=== PATIENT | female | born 1970 | race Caucasian/White ===

== ENCOUNTER → 2021-02-02 | Day surgery (SDC) | payer BC ==
[~2021-02-02] VITALS: Ht 165.1 cm; Wt 154.0 kg
[~2021-02-02] MED LIST: LIDOCAINE 1%/EPI 1:100,000 20 ML VIAL. INJ ONE; LIDOCAINE 1%/EPI 1:100,000 20 ML VIAL. ONE
[2021-02-02 11:45] VITALS: BP 127/88
--- NOTE | 2021-02-02 14:20 | PDOC4 ---
Operative Note Operative Note Date: February 02, 2021 at 12:30 PM Preoperative diagnosis: Right flank mass Postoperative diagnosis: Same Procedure: Excision of right flank mass Surgeon: Suman Specimen: Right flank mass Dictation: Patient is a 50-year-old female with complaints of a lump on her right flank. Procedure of excision was explained to the patient detail was benefits were also discussed occluding bleeding infection. Patient was taken to the minor's room placed in the left lateral cubitus position area around the mass was prepped and draped usual sterile fashion using ChloraPrep. Area around the mass was injected with 1% lidocaine with epinephrine elliptical incision was made with 15 blade scalpel is carried down through subcutaneous tissue excising the mass sharply and sent for pathology. The wound was closed in a single layer 4-0 subcuticular Monocryl Mastisol Steri-Strips and island dressing were applied. Patient tolerated procedure well was discharged home in stable condition all sponge instrument needle counts listed as correct estimated blood loss 5 mL AGUSTÍN THIBODEAUX MD Feb 02, 2021 14:20
--- NOTE | 2021-02-02 14:22 | DISCH ---
DISCHARGE INSTRUCTIONS Condition on Discharge Condition on Discharge: Stable Activity After Discharge Activity Instructions for Disc: No restrictions Diet after Discharge Diet after Discharge: Regular Wound Incision Care Other wound/incision instructi: May shower in 24 hours Contacting the after DC Call your doctor for: If your condition worsens Follow-Up Follow up with: Dr. Thibodeaux in 2 weeks AGUSTÍN THIBODEAUX MD Feb 02, 2021 14:22
--- NOTE | 2021-02-07 16:10 | PATHOLOGY ---
[facility] Accession Number: [id number] . 01 Material submitted: . flank - MASS RIGHT FLANK. Modifiers: right . 01 Clinical history: . SEBACEOUS CYST OF RIGHT BREAST . 02 Diagnosis: Skin and subcutaneous tissue, excision lesion right breast: - Dermal scarring with focal chronic inflammation and foreign body giant cell reaction within deep dermis. (JPM:pit; 02/07/2021) [facility] 02/07/2021 1453 Local . 02 Comment: The findings may represent a previously ruptured epidermal inclusion cyst. There is no evidence of malignancy. (JPM:pit; 02/07/2021) . 02 Electronically signed: . Param Valdivia MD, Pathologist NPI- [id number] . 01 Gross description: . Received in formalin labeled "Licha Henson, mass right flank" is an ellipse of elliott-white skin and underlying soft tissue measuring 1.7 x 1.7 x 0.6 cm. The specimen is sectioned to reveal a elliott-brown hemorrhagic possible cystic structure measuring 1.0 cm. The specimen is entirely submitted in cassette A1. [place] [place] 02/03/[place]21[place] [facility] 02/03/2021 0934 Local . 02 Pathologist provided ICD-10: L90.5, L08.9 . 02 CPT . 542478 Specimen Comment: A courtesy copy of this report has been sent to [phone], [phone] Specimen Comment: 1989 Specimen Comment: Report sent to / DR ZIMMER Performed at: 01 [facility] [address], [place], [place] [id number] MD Preston Aleman MD Phone: [phone] Performed at: 02 [facility] [address] [place], [place] [id number] MD Param Valdivia MD Phone: [phone]
== END | disposition home or self-care (01) ==
LOC: SURG 11:03
PROVIDERS: ATTEND Surgery
DX: R22.2 Localized swelling, mass and lump, trunk (principal); L90.5 Scar conditions and fibrosis of skin; L08.9 Local infection of the skin and subcutaneous tissue, unspecified; Z90.49 Acquired absence of other specified parts of digestive tract; Z98.890 Other specified postprocedural states
CPT/HCPCS: 11404; 88304; J3490